=== PATIENT | female | born 1980 | race Caucasian/White ===

== ENCOUNTER 2016-12-18 10:49 | Emergency (ER) | payer OTHER ==
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
[2016-12-18] MEDS ORDERED: PAXIL (10:56)
== END 2016-12-18 12:19 | disposition home or self-care (01) ==
LOC: SED 10:49
DX: S05.12XA Contusion of eyeball and orbital tissues, left eye, initial encounter (principal); F17.200 Nicotine dependence, unspecified, uncomplicated; W22.8XXA Striking against or struck by other objects, initial encounter; Y92.009 Unspecified place in unspecified non-institutional (private) residence as the place of occurrence of the external cause
CPT/HCPCS: 70450; 70486; 99283